=== PATIENT | female | born 1955 | race African-American/Black ===

== ENCOUNTER 2018-02-19 08:46 | Day surgery (SDC) | payer BC, OTHER, SELFPAY ==
[2018-02-14 11:45] VITALS: BMI 31.1
[2018-02-19] VITALS (7 sets, daily range): BP systolic 111–164; BP diastolic 64–92; PULSE 54–78; RESP 10–19; TEMP 36.3–36.6; O2SAT 94–98; BMI 31.1
--- NOTE | 2018-02-19 | PATH_ITS ---
[facility] Accession Number: [id number] . 01 Material submitted: . PART A: ENDOMETRIAL POLYP PART B: ENDOCERVICAL CURETTINGS PART C: ENDOMETRIAL CURETTINGS . 02 Diagnosis: A. Cervix Designated Endometrial Polyp: Multiple tissue fragments consistent with benign endometrial polyp, negative for atypia. . B. Endocervical Curettings: Small fragments of endocervical epithelium, negative for atypia. . C. Endometrial Curettings: Three fragments of endometrium consistent with benign endometrial polyp, negative for atypia. Fragments of endometrial surface epithelium, negative for atypia. [facility]/02/21/2018 . 02 Electronically signed: . Mario Veliz MD, Pathologist NPI- [id number] . 01 Gross description: . Received three formalin-filled containers, each labeled with the patient's name: . A. In a container labeled endometrial polyp, the specimen consists of a very irregular-shaped, rangel-coleman portion of tissue and mucoid material which measures 3.0 x 1.0 x 0.5 cm. The specimen is sectioned into multiple pieces and totally submitted in cassettes A1 and A2. B. In a container labeled endocervical curettings, the specimen consists of a less than 0.25 cc aggregate of mucoid material and blood, which is filtered, wrapped, and entirely submitted in cassette B. C. In a container labeled endometrial curettings, the specimen consists of approximately a 0.5 cc aggregate of mucoid material and blood, which is filtered, wrapped, and entirely submitted in cassette C. ([id number]) /FRR . 02 Pathologist provided ICD-10: N84.0 . 02 CPT . 831854, 365344, 884829 Performed at: 01 [facility] [address] [place] [address], [place], [place] [id number] MD Raúl Matos MD Phone: [phone] Performed at: 02 [facility] [address] [place] [id number] MD Fab Barnes MD Phone: [phone]
[2018-02-19] MEDS: LACTATED RINGERS 1,000 ML 42 ML IV (09:30)
--- NOTE | 2018-02-19 10:42 | PM.PREOP ---
Pre-operative Note Interval Note Pre-op Check: Yes History & Physical Reviewed by Physician Changes: No
--- NOTE | 2018-02-19 11:11 | SUR.OPER ---
Lithotomy on padded OR bed, head on pillow, arms secured on padded arm boards at <90 degrees abduction. Legs secured in padded yellow fins stirrups.
[2018-02-19] MEDS: BUPIVACAINE 0.25% W/ EPI VIAL 50 ML INJ (11:25)
--- NOTE | 2018-02-19 11:42 | P.OP_ITS ---
Operative Date/Time/Diagnoses Date of procedure: 02/19/18 Time of procedure: 11:32 Pre-op diagnosis: Postmenopausal Bleeding Post-op diagnosis: other (Endometrial polyp) Procedure: Procedures Operation Date: 02/19/18 10:45 Actual Procedures Side Surgeon p Hysteroscopy D&C Cait Escalona MD Indications: The patient is a 62-year-old 4 para 4 female here for surgical evaluation and management of postmenopausal bleeding. She had an endometrial biopsy in the clinic with little tissue obtained, and findings of scant benign atrophic endometrium. Ultrasound has shown a thickened endometrium , and a repeat ultrasound showed the same. There is a 9 mm cystic-appearing endometrial stripe present on the most recent ultrasound. Given the thickened lining in a postmenopausal patient with bleeding and likely insufficient endometrial biopsy, it was recommended the patient undergo hysteroscopy with dilation curettage to visualize and sample the endometrium. The risks, benefits , limitations, alternatives, and expectations of surgery were discussed, and consent was reviewed and signed prior to the date of surgery. Surgeon: Cait Escalona Anesthesia Type: General and Local (0.25% Marcaine with epi) Operative Notes Findings: Exam under anesthesia: The uterus was approximately 7 weeks in size. There are no adnexal masses palpable. Operative findings: The cervix appeared normal with a slightly stenotic cervical os. No lesions were noted on the cervix or within the vagina. Hysteroscopically, an approximately 1.5-2 cm polypoid mass was noted to originate from the right endometrial sidewall. This was removed with polyp forceps. The left tubal ostium was seen. However, the right tubal ostium was not well-visualized. Repeat inspection with the hysteroscope after the polyp removal noted good excision of the lesion. No other lesions or masses were noted hysteroscopically. Closure Type: not applicable Specimen(s): endometrial curettings, endometrial polyp and other (Endocervical curettings) Estimated blood loss (mL): 7 Blood products transfused: none Procedure in detail: The patient was taken to the operating room where general anesthesia with LMA was administered without difficulty. She was then placed in the high dorsal lithotomy position with her lower extremities in Yellofin stirrups. Exam under anesthesia was then performed with the findings as noted above. The perineum and vagina were then prepped and draped in a sterile fashion, and in-and-out catheterization was performed. Procedure Time-Out was performed. A sterile bivalve speculum was then placed. The anterior lip of the cervix was then grasped with a single-toothed tenaculum. Local anesthetic using 0.25% Marcaine with epinephrine was then injected at the 2:00, 4:00, 7:00, and 10:00 positions for a paracervical block. The cervix was then serially dilated until a 22 F 30-degree hysteroscope could be gently advanced to the uterine fundus. Using sterile saline for distention, the uterine cavity was visualized with the findings as noted above. The endometrial polyp was grasped and removed using polyp forceps. Endocervical curettage was then performed followed by endometrial curettage on all 4 jo of the uterus. A scant amount of additional tissue was obtained and sent for pathology. The hysteroscope was then reintroduced to ensure the entire polyp had been removed. The stalk was visualized; however, there was no evidence of residual polypoid tissue. The hysteroscope was then removed. The tenaculum was then removed from the anterior lip of the cervix, and the tenaculum sites were hemostatic with application of gentle pressure using a sponge stick. The speculum was then removed, and the procedure was deemed complete. The patient will was subsequently awakened and transferred to the PACU in stable condition. Sponge lap and needle count were correct x3, and there were no complications. Complications: none Post-operative Condition: stable Disposition: same day surgery Plan for aftercare: Discharge to home once meeting discharge criteria. See handout for precautions and instructions.
== END 2018-02-19 12:25 | disposition home or self-care (01) ==
PROVIDERS: Visit Provider Obstetrics & Gynecology
PROC: 0UDB8ZZ Extraction of Endometrium, Via Natural or Artificial Opening Endoscopic (ICD-10-PCS; CPT 58558; principal; 2018-02-19 10:45)
DX: N84.0 Polyp of corpus uteri (principal); I10 Essential (primary) hypertension; E03.9 Hypothyroidism, unspecified
CPT/HCPCS: 58558; 88305; J1100; J1885; J2250; J2405; J2704; J3010

== ENCOUNTER → 2020-12-16 10:49 | Outpatient (CLI) | payer BC, MEDICARE, OTHER, SELFPAY ==
[2020-12-16 12:59] LABS: Appearance Urine UA CLEAR; Bilirubin Urine UA NEGATIVE (NEGATIVE); Color Urine UA YELLOW; Glucose Urine UA NEGATIVE (Negative); Ketones Urine UA NEGATIVE (NEGATIVE); Leukocyte Esterase Urine UA TRACE (NEGATIVE); Nitrite Urine UA NEGATIVE (Negative); Occult Blood Urine UA 1+ (Negative); Protein Urine UA NEGATIVE (Negative); Urobilinogen Urine UA 0.2 E.U./dL (0.2)
[2020-12-16 13:07] LABS: pH Urine UA 7.5 (4.5-8.0)
[2020-12-16 13:16] LABS: Bacteria Urine Occasional (0-1); Culture Indicated Urine Specimen Cultured; RBC Urine 1-5/HPF (0-5/HPF); Squamous Epithelial Cell Urine 0-1 /HPF (0-5/HPF); WBC Urine 1-5/HPF (0-5/HPF)
== END ==
PROVIDERS: Referring Provider Obstetrics & Gynecology; Visit Provider Obstetrics & Gynecology
DX: R39.9 Unspecified symptoms and signs involving the genitourinary system (principal)
CPT/HCPCS: 81001; 87086

== ENCOUNTER → 2020-12-21 09:45 | Outpatient (CLI) | payer BC, MEDICARE, OTHER, SELFPAY ==
--- NOTE | 2020-12-21 09:46 | DI.US.S_ITS ---
PROCEDURE: US PELVIC COMPLETE INDICATIONS: PAIN TECHNIQUE: Real-time scanning was performed of the pelvic organs, with image documentation. Additional endovaginal scanning was necessary due to incomplete visualization of the adnexal and endometrial structures by transabdominal scanning. COMPARISON: None. FINDINGS: Uterus: Uterus is normal in size at 6.3 x 3.5 x 4.4 cm. The endometrium measures 1.9 mm in combined thickness. Moderate amount of fluid noted in the endometrial canal. Small intramural uterine fibroid noted measuring 1.7 x 0.7 x 1.2 cm. Ovaries: Neither ovary visualized. No adnexal mass Other: No pathologic free abdominal or pelvic fluid. IMPRESSION: 1. Moderate fluid noted in the endometrial canal. 2. Small intramural uterine fibroid 3. Neither ovary visualized Approved by: Charles Ordonez M.D. on 12/21/2020 at 10:03
== END ==
PROVIDERS: PCP Obstetrics & Gynecology; Referring Provider Obstetrics & Gynecology; Visit Provider Obstetrics & Gynecology
DX: R10.2 Pelvic and perineal pain (principal); D25.1 Intramural leiomyoma of uterus
CPT/HCPCS: 76830; 76856

== ENCOUNTER → 2021-02-01 08:00 | Outpatient (CLI) | payer BC, MEDICARE, OTHER, SELFPAY ==
--- NOTE | 2021-02-01 08:07 | DI.CT.S_ITS ---
PROCEDURE: CT KIDNEY URETER BLADDER (KUB) INDICATIONS: Hematuria TECHNIQUE: Axial sections were acquired from the lung bases to the pubic symphysis. Coronal and sagittal reformats were performed. For radiation dose reduction, the following was used: automated exposure control, adjustment of mA and/or kV according to patient size. COMPARISON: None. FINDINGS: Image quality: Excellent. Lung bases: Unremarkable. Heart: No significant findings. URINARY: Right Kidney: No stones or hydronephrosis. Right Ureter: No hydroureter. Left Kidney: No stones or hydronephrosis. Left Ureter: No hydroureter. Bladder: Normal wall thickness. No stones. ABDOMEN: Liver: Unremarkable. Gallbladder: Unremarkable. Biliary ducts: Unremarkable. Pancreas: Unremarkable. Spleen: Unremarkable. Adrenal Glands: Unremarkable. Stomach and Bowel: Stomach, small bowel loops, and colon are unremarkable. Normal appendix. Probable mobile cecum. Peritoneum: No abnormal intraperitoneal fluid. No free air. Ventral Wall: Small periumbilical hernia containing nonobstructed bowel. Abdominal Nodes: No enlarged retroperitoneal or mesenteric lymph nodes. Vessels: Aorta and inferior vena cava are normal in size. PELVIS: Pelvic Organs: Uterus has a somewhat lobulated appearance suggesting probable fibroids. Probable incidental benign right paraovarian calcifications. Pelvic Nodes: Unremarkable. Miscellaneous: No inguinal hernias are seen. Bones: Mild lumbar degenerative change. IMPRESSION: 1. No renal stones, ureteral stones, or hydronephrosis. 2. Incidental note made of probable mobile cecum. 3. Small periumbilical hernia containing nonobstructed bowel. Dictated by: Matt Espino M.D. on 02/01/2021 at 10:10 Approved by: Matt Espino M.D. on 02/01/2021 at 10:17
[2021-02-01 08:56] LABS: Appearance Urine UA CLEAR; Bilirubin Urine UA NEGATIVE (NEGATIVE); Color Urine UA YELLOW; Glucose Urine UA NEGATIVE (Negative); Ketones Urine UA NEGATIVE (NEGATIVE); Leukocyte Esterase Urine UA 1+ (NEGATIVE); Nitrite Urine UA NEGATIVE (Negative); Occult Blood Urine UA 1+ (Negative); Protein Urine UA NEGATIVE (Negative); Specific Gravity Urine UA 1.015 (1.000-1.035); Urobilinogen Urine UA 0.2 E.U./dL (0.2)
[2021-02-01 09:48] LABS: RBC Urine 1-5/HPF (0-5/HPF); Squamous Epithelial Cell Urine 5-10 /HPF (0-5/HPF); WBC Urine 1-5/HPF (0-5/HPF); pH Urine UA 7.5 (4.5-8.0)
[2021-02-01 09:49] LABS: Bacteria Urine Few (2-10); Culture Indicated Urine Cult Not Indicated
== END ==
PROVIDERS: PCP Obstetrics & Gynecology; Referring Provider Obstetrics & Gynecology; Visit Provider Obstetrics & Gynecology
DX: R31.9 Hematuria, unspecified (principal); K42.9 Umbilical hernia without obstruction or gangrene
CPT/HCPCS: 74176; 81003; 81015

== ENCOUNTER → 2021-04-06 08:38 | Outpatient (CLI) | payer MEDICARE, OTHER, SELFPAY ==
[2021-04-06 09:19] LABS: BUN Creatinine Ratio 8.9 (6-22); Blood Urea Nitrogen 7 mg/dL (7-17); Calcium 9.6 mg/dL (8.4-10.2); Carbon Dioxide 30 mmol/L (22-32); Chloride 105 mmol/L (98-107); Estimated Glomerular Filt Rate > 60.0 mL/min (>60); Glucose 105 mg/dL (80-110); HEMOLYSIS < 15 (0-50); Sodium 141 mmol/L (137-145)
== END ==
PROVIDERS: PCP Internal Medicine; Referring Provider Urology; Visit Provider Urology
DX: R31.21 Asymptomatic microscopic hematuria (principal); Z77.22 Contact with and (suspected) exposure to environmental tobacco smoke (acute) (chronic)
CPT/HCPCS: 36415; 80048; 81002; 99214

== ENCOUNTER → 2021-04-19 12:41 | Outpatient (CLI) | payer MEDICARE, OTHER, SELFPAY ==
--- NOTE | 2021-04-19 12:44 | DI.CT.S_ITS ---
PROCEDURE: CT ABDOMEN PELVIS WO/W CON INDICATIONS: Asymptomatic microscopic hematuria TECHNIQUE: Optional 5 mm thick noncontrast images acquired from the diaphragm to the symphysis pubis. After the administration of intravenous contrast, 5 mm thick images acquired from the diaphragm to the symphysis pubis after a 10-minute delay. 2 mm thick coronal and sagittal reformats were then performed of the kidneys and ureters. For radiation dose reduction, the following was used: automated exposure control, adjustment of mA and/or kV according to patient size. COMPARISON: [facility], CT, ABD W&WO PELV W/CON (PNL), 09/29/2011, 14:01. [facility], CT, CT KIDNEY URETER BLADDER (KUB), 02/01/2021, 8:09. FINDINGS: Image quality: Excellent. Lung bases: A 4 mm nodule is seen in the peripheral right middle lobe (image 3 of series 4), which may have been partially imaged on the prior exam from 09/29/2011. Heart size is normal. Urinary system: Both kidneys are normal in size, without hydronephrosis or nephrolithiasis on pre-contrast images. No perinephric fat stranding. There is normal bilateral renal enhancement. Renal calyces appear normal in morphology when filled with contrast. Opacified portions of both ureters demonstrate normal caliber. Bladder wall thickness is normal. No calcified bladder stones. Other solid organs: Liver is normal in size and enhancement. Gallbladder is unremarkable. Biliary system is non dilated. Pancreas enhances normally. Spleen is normal in size and enhancement. No adrenal nodules. Peritoneum and bowel: Bowel loops demonstrate normal wall thickness and caliber. No free fluid or air. Nodes and vessels: No retroperitoneal or mesenteric adenopathy by size criteria. Aorta and inferior vena cava are normal in size. Abdominal wall: Tiny periumbilical fat containing hernia.. Pelvis: No pathologic free pelvic fluid. No inguinal hernias or adenopathy. Bones: No suspicious bony lesions. No vertebral body compression fractures. IMPRESSION: 1. No renal or ureteral calculus. No suspicious urothelial lesion. 2. Nonspecific 4 mm pulmonary nodule in the peripheral right middle lobe. No imaging follow-up is required based on Fleischner society guidelines. If the patient is at a high risk for pulmonary malignancy, an optional CT of the chest can be performed in 12 months. Dictated by: Itz Lowry M.D. on 04/19/2021 at 13:47 Approved by: Itz Lowry M.D. on 04/19/2021 at 14:18
== END ==
PROVIDERS: PCP Internal Medicine; Referring Provider Urology; Visit Provider Urology
DX: R31.21 Asymptomatic microscopic hematuria (principal); R10.2 Pelvic and perineal pain; R91.1 Solitary pulmonary nodule; Z77.22 Contact with and (suspected) exposure to environmental tobacco smoke (acute) (chronic)
CPT/HCPCS: 74178